=== PATIENT | female | born 1940 | race Caucasian/White ===

== ENCOUNTER 2017-07-26 12:00 | Emergency (ER) | payer MEDICARE, OTHER ==
[~2017-07-26] VITALS: Ht 170.2 cm; Wt 72.0 kg
[2017-07-26 12:57] LABS: BASOPHILS # (AUTO) 0.03 x10^3/uL (0-0.1); BASOPHILS % (AUTO) 1 % (0-1); EOSINOPHILS # (AUTO) 0.12 x10^3/uL (0-0.4); EOSINOPHILS % (AUTO) 2 % (1-7); LYMPHOCYTES # (AUTO) 1.91 x10^3/uL (1-3.4); LYMPHOCYTES % (AUTO) 39 % (22-44); MD NO; MEAN CORPUSCULAR HEMOGLOBIN 32.8 pg (27.0-34.8); MEAN CORPUSCULAR HGB CONC 33.7 g/dL (32.4-35.8); MEAN CORPUSCULAR VOLUME 97.3 fL (80-100); MEAN PLATELET VOLUME 7.6 fL (7.4-10.4); MONOCYTES # (AUTO) 0.39 x10^3/uL (0.2-0.8); MONOCYTES % (AUTO) 8 % (2-9); NEUTROPHILS # (AUTO) 2.48 x10^3/uL (1.8-6.8); NEUTROPHILS % (AUTO) 50 % (42-75); PLATELET COUNT 270 x10^3/uL (130-400); RED BLOOD COUNT 4.22 x10^6/uL (3.82-5.3); RED CELL DISTRIBUTION WIDTH 15.7 % (9.6-15.2)
[2017-07-26 13:05] LABS: ALBUMIN 3.7 g/dL (3.4-5.0); ANION GAP 9 mmol/L (5-15); CALCIUM 8.8 mg/dL (8.5-10.1); CHLORIDE 107 mmol/L (98-107); CREATININE 0.64 mg/dL (0.55-1.02)
[2017-07-26 13:09] LABS: TROPONIN I < 0.015 ng/mL (0.000-0.045)
[2017-07-26 15:31] VITALS: BP 165/79
[2017-07-26 16:47] LABS: MICROSCOPIC AUTO
[2017-07-26 16:48] LABS: CULTURE INDICATED? YES
== END 2017-07-26 15:39 | disposition home or self-care (01) ==
LOC: ED 15:33
DX: G45.9 Transient cerebral ischemic attack, unspecified (principal); G46.1 Anterior cerebral artery syndrome; N30.00 Acute cystitis without hematuria
CPT/HCPCS: 36415; 70450; 71045; 80048; 81001; 82040; 84484; 85025; 87077; 87086; 87186; 93005; 99285